=== PATIENT | male | born 1980 | race Hispanic/Latino ===

== ENCOUNTER 2016-08-29 05:24 | Emergency (ER) | payer SELFPAY ==
[2016-08-29] MEDS ORDERED: BENADRYL ONE (05:38)
[2016-08-29] MEDS ORDERED: BENADRYL IV ONE (05:38)
[2016-08-29 05:55] VITALS: BP 133/62
[2016-08-29 06:05] LABS: Basophils % (Auto) 2.1 % (0.0-1.8); Hematocrit 41.4 % (35.5-45.6); Hemoglobin 13.6 gm/dl (11.8-15.2); Mean Corpuscular HGB Conc 33 % (32-34); Mean Corpuscular Hemoglobin 32 pg (28-32); Mean Corpuscular Volume 98 fl (84-94); Platelet Count 277 K/mm3 (140-440); Red Blood Count 4.21 M/mm3 (3.65-5.03); Red Cell Distribution Width 14.3 % (13.2-15.2); White Blood Count 5.5 K/mm3 (4.5-11.0)
[2016-08-29 06:25] LABS: Anion Gap 24 mmol/L; BUN/Creatinine Ratio 8.75; Blood Urea Nitrogen 7 mg/dL (9-20); Calcium 9.2 mg/dL (8.4-10.2); Carbon Dioxide 22 mmol/L (22-30); Chloride 97.9 mmol/L (98-107); Glucose 79 mg/dL (75-100); Sodium 137 mmol/L (137-145)
[2016-08-29 06:26] LABS: Potassium 6.5 mmol/L (3.6-5.0)
--- NOTE | 2016-08-29 07:28 | Emergency Department Report ---
HPI - General Chief Complaint: Skin/Abscess/Foreign Body Time Seen by Provider: 08/29/16 07:11 ED Past Medical Hx - Past Medical History Previous Medical History?: Yes Hx Asthma: Yes - Surgical History Past Surgical History?: Yes Additional Surgical History: Right hand surgery, Left wrist, Right heel surgery - Social History Smoking Status: Never Smoker Substance Use Type: None - Medications Home Medications: Home Medications Medication Instructions Recorded Confirmed Last Taken Type No Known Home Medications [No 06/11/14 06/11/14 Unknown History Reported Home Medications] ED Review of Systems ROS: Stated complaint: ALLERGIC REACTION Other details as noted in HPI Physical Exam - Physical Exam Vital Signs: Vital Signs 08/29/16 05:24 Temperature 98.0 F Pulse Rate 90 Respiratory 20 Rate Blood Pressure 133/62 [Right] O2 Sat by Pulse 100 Oximetry ED Course Vital Signs 08/29/16 05:24 Temperature 98.0 F Pulse Rate 90 Respiratory 20 Rate Blood Pressure 133/62 [Right] O2 Sat by Pulse 100 Oximetry ED Medical Decision Making - Lab Data Result diagrams: 08/29/16 05:40 08/29/16 05:40 Critical care attestation.: If time is entered above; I have spent that time in minutes in the direct care of this critically ill patient, excluding procedure time. ED Disposition Clinical Impression: Foreign body of ear, right Qualifiers: Encounter type: initial encounter Qualified Code(s): T16.1XXA - Foreign body in right ear, initial encounter Disposition: DISCHARGED TO HOME OR SELFCARE Is pt being admited?: No Does the pt Need Aspirin: No Condition: Stable Instructions: Ear Foreign Body (ED) Forms: Work/School Release Form(ED) Time of Disposition: 07:30
== END 2016-08-29 08:09 | disposition left against medical advice (07) ==
LOC: ED 05:24
DX: T78.40XA Allergy, unspecified, initial encounter (principal); L29.9 Pruritus, unspecified; R07.81 Pleurodynia; J45.909 Unspecified asthma, uncomplicated; Z88.5 Allergy status to narcotic agent; Z53.21 Procedure and treatment not carried out due to patient leaving prior to being seen by health care provider
CPT/HCPCS: 36415; 80048; 82962; 85025; G0480; J1200; 80320

== ENCOUNTER 2017-04-21 11:32 | Inpatient (IN) | payer OTHER ==
[2017-04-21] MEDS ORDERED: NACL 0.9% 1000 ML 1,000 ML IV ONE (12:20)
[2017-04-21 12:36] LABS: Hemoglobin 13.1 gm/dl (11.8-15.2); Red Blood Count 4.24 M/mm3 (3.65-5.03)
[2017-04-21 12:37] LABS: Hematocrit 38.1 % (35.5-45.6); Mean Corpuscular HGB Conc 35 % (32-34); Mean Corpuscular Hemoglobin 31 pg (28-32); Mean Corpuscular Volume 90 fl (84-94); Platelet Count 205 K/mm3 (140-440); Red Cell Distribution Width 15.4 % (13.2-15.2)
[2017-04-21 12:44] LABS: Albumin 4.2 g/dL (3.9-5); Albumin/Globulin Ratio 1.2 %; Alkaline Phosphatase 220 units/L (35-129); Anion Gap 18 mmol/L; BUN/Creatinine Ratio 11; Bilirubin,Direct 6.2 mg/dL (0-0.2); Bilirubin,Indirect 2.5 mg/dL; Blood Urea Nitrogen 8 mg/dL (9-20); Calcium 9.2 mg/dL (8.4-10.2); Carbon Dioxide 26 mmol/L (22-30); Chloride 98.4 mmol/L (98-107); Glucose 89 mg/dL (75-100); Lipase 53 units/L (13-60); Potassium 4.3 mmol/L (3.6-5.0); Sodium 138 mmol/L (137-145); Total Protein 7.6 g/dL (6.3-8.2)
[2017-04-21 12:56] LABS: Alanine Aminotransferase 3553 units/L (7-56)
[2017-04-21] MEDS ORDERED: ULTRAM PO ONE (13:01)
--- NOTE | 2017-04-21 13:02 | Emergency Department Report ---
ED General Adult HPI - General Chief complaint: Abdominal Pain Stated complaint: ABD PAIN Time Seen by Provider: 04/21/17 12:17 Source: patient, EMS Mode of arrival: Stretcher Limitations: Other - History of Present Illness Initial comments: This is a patient from the [facility] that arise in the hospital with a request to admit for further evaluation and treatment. Apparently he's been having abdominal pain for at least 3 weeks perhaps now four. He's had an abdominal sonogram on 04/15/2017 which was normal. He also had plain x-rays of his left ribs which were normal. He was sent for outpatient labs on April 19 which demonstrated a bilirubin of 8.1 and AST of nearly 2000 and ALT of 3500. He complains today of persistent mostly right upper quadrant pain. He has not had any problems urinating. He does not complain of nausea now. Review of additional laboratory tests at the [facility] indicate that on the he was negative for centimeters and an positive for hepatitis B core IgM antibody. His labs at that time otherwise did not show anything remarkably out of the normal range. -: Gradual, week(s) Location: abdomen Radiation: non-radiation Quality: aching Consistency: intermittent Improves with: none Worsens with: none Associated Symptoms: denies other symptoms Treatments Prior to Arrival: none - Related Data Home Medications Medication Instructions Recorded Confirmed Last Taken No Known Home Medications [No 06/11/14 06/11/14 Unknown Reported Home Medications] Allergies Allergy/AdvReac Type Severity Reaction Status Date / Time morphine Allergy Hives Verified 06/11/14 12:41 ED Review of Systems ROS: Stated complaint: ABD PAIN Other details as noted in HPI Constitutional: denies: chills, fever Eyes: denies: eye pain, eye discharge, vision change ENT: denies: ear pain, throat pain Respiratory: denies: cough, shortness of breath, wheezing Cardiovascular: denies: chest pain, palpitations Endocrine: no symptoms reported Gastrointestinal: abdominal pain. denies: nausea, vomiting, diarrhea Genitourinary: denies: urgency, dysuria Musculoskeletal: denies: back pain, joint swelling, arthralgia Skin: denies: rash, lesions Neurological: denies: headache, weakness, paresthesias Psychiatric: denies: anxiety, depression Hematological/Lymphatic: denies: easy bleeding, easy bruising ED Past Medical Hx - Past Medical History Previous Medical History?: Yes Hx Liver Disease: Yes Hx Asthma: Yes - Surgical History Past Surgical History?: Yes Additional Surgical History: Right hand surgery, Left wrist, Right heel surgery - Social History Smoking Status: Current Every Day Smoker Substance Use Type: Alcohol, Other (patient denies IVDA) Other Social History: Incarcerated 4 months. - Medications Home Medications: Home Medications Medication Instructions Recorded Confirmed Last Taken Type No Known Home Medications [No 06/11/14 06/11/14 Unknown History Reported Home Medications] ED Physical Exam - General Limitations: No Limitations General appearance: alert, in no apparent distress - Head Head exam: Present: atraumatic, normocephalic - Eye Eye exam: Present: normal appearance, scleral icterus. Absent: PERRL, EOMI - ENT ENT exam: Present: mucous membranes moist - Neck Neck exam: Present: normal inspection - Respiratory Respiratory exam: Present: normal lung sounds bilaterally. Absent: respiratory distress - Cardiovascular Cardiovascular Exam: Present: regular rate, normal rhythm. Absent: systolic murmur, diastolic murmur, rubs, gallop - GI/Abdominal GI/Abdominal exam: Present: soft, tenderness (some right upper quadrant discomfort to palpation), normal bowel sounds, organomegaly ( consider hepatomegaly). Absent: distended, guarding, rebound, rigid - Rectal Rectal exam: Present: deferred - Extremities Exam Extremities exam: Present: normal inspection - Back Exam Back exam: Present: normal inspection - Neurological Exam Neurological exam: Present: alert, oriented X3, CN II-XII intact. Absent: motor sensory deficit - Psychiatric Psychiatric exam: Present: normal affect, normal mood - Skin Skin exam: Present: warm, dry, intact, normal color. Absent: rash ED Course Vital Signs 04/21/17 11:35 Temperature 98 F Pulse Rate 87 Respiratory 17 Rate Blood Pressure 110/82 O2 Sat by Pulse 100 Oximetry - Reevaluation(s) Reevaluation #1: Repeat blood tests are obtained. The patient is admitted by Dr. Saleem to the hospitalist service for further care and evaluation. A CT examination was requested and ordered. 04/21/17 13:06 ED Medical Decision Making - Lab Data Result diagrams: 04/21/17 12:05 04/21/17 12:05 Laboratory Results - last 24 hr 04/21/17 04/21/17 12:05 12:05 WBC 4.0 L RBC 4.24 Hgb 13.1 Hct 38.1 MCV 90 MCH 31 MCHC 35 H RDW 15.4 H Plt Count 205 Sodium 138 Potassium 4.3 Chloride 98.4 Carbon Dioxide 26 Anion Gap 18 BUN 8 L Creatinine 0.7 L Estimated GFR > 60 BUN/Creatinine Ratio 11 Glucose 89 Calcium 9.2 Total Bilirubin 8.70 H Direct Bilirubin 6.2 H Indirect Bilirubin 2.5 AST 2107 H ALT 3553 H Alkaline Phosphatase 220 H Total Protein 7.6 Albumin 4.2 Albumin/Globulin Ratio 1.2 Lipase 53 Critical care attestation.: If time is entered above; I have spent that time in minutes in the direct care of this critically ill patient, excluding procedure time. ED Disposition Clinical Impression: Hepatitis, acute type B, Transaminasemia, Hyperbilirubinemia Abdominal pain Qualifiers: Abdominal location: right upper quadrant Qualified Code(s): R10.11 - Right upper quadrant pain Disposition: DC-09 OP ADMIT IP TO THIS HOSP Is pt being admited?: Yes Does the pt Need Aspirin: No Condition: Stable Referrals: PRIMARY CAREMD [Primary Care Provider] - 3-5 Days Time of Disposition: 13:08
[2017-04-21 13:33] LABS: Basophils % (Manual) 0 % (0.0-1.8); Blastocytes % (Manual) 0 %
[2017-04-21 13:34] LABS: Anisocytosis Few; Diff Status Complete; Target Cells Few
[2017-04-21 13:36] LABS: Urine Drugs of Abuse Note Disclamer
[2017-04-21 13:49] LABS: INR 1.18 (0.87-1.13)
[2017-04-21 13:50] LABS: Bilirubin,Urine MOD (Negative); Blood,Urine NEG (Negative); Ketones,Urine NEG (Negative); Leukocyte Esterase,Urine NEG (Negative); Mucus,Urine FEW /HPF; Nitrite,Urine NEG (Negative); Protein,Urine <15 mg/dL mg/dL (Negative)
[2017-04-21 13:50] LABS: Partial Thromboplastin Time 36.2 Sec. (24.2-36.6)
[2017-04-21 13:54] LABS: Creatine Kinase MB 3.6 ng/mL (0.0-4.0)
[2017-04-21 13:55] LABS: Magnesium 1.9 mg/dL (1.7-2.3)
--- NOTE | 2017-04-21 15:31 | Cat Scan Report ---
CT ABDOMEN AND PELVIS WITH CONTRAST INDICATION: Abdominal pain.. COMPARISON: None similar at this institution. FINDINGS: Abdomen and pelvis CT performed following intravenous administration of 100 cc of Omnipaque 300. LUNG BASES: Slight right middle lobe scarring medially. Nonspecific distal esophageal wall prominence/thickening, not excluded for gastroesophageal reflux and/or hiatal hernia, amongst others. ABDOMEN: Indeterminate 7 mm left hepatic lobe hypodensity anterosuperiorly near the midline, axial series 3, image 13 with questionable small peripheral nodular enhancement, though not included on the delayed phase and may represent a hemangioma. Otherwise unremarkable liver, spleen, gallbladder, pancreas, adrenals, aorta, IVC and kidneys. No ascites or size significant adenopathy. Nonopacified GI tract evaluation limited, though grossly nonobstructive. Cecum slightly low lying in the right hemipelvis anteriorly with a normal appendix. Mild colonic stool. Small fat-containing umbilical hernia. PELVIS: Urinary bladder, seminal vesicles and prostate within normal limits. Rectosigmoid stool. No free fluid or significant adenopathy. Subtle L5 pars defect on the right questioned. No focal aggressive osseous lesions. CONCLUSION: No acute CT abnormality with few incidental findings, as above. Thank you for the opportunity to participate in this patient's care.
--- NOTE | 2017-04-21 16:28 | History and Physical Report ---
History of Present Illness Date of examination: 04/21/17 Date of admission: 04/21/17 13:09 Chief complaint: CC: Acute Abd pain 3 weeks History of present illness: History of Present Illness: This is a patient from the [facility] that arise in the hospital with a request to admit for further evaluation and treatment. Apparently he's been having abdominal pain for at least 3 weeks perhaps now four. He's had an abdominal sonogram on 04/15/2017 which was normal. He also had plain x-rays of his left ribs which were normal. He was sent for outpatient labs on April 19 which demonstrated a bilirubin of 8.1 and AST of nearly 2000 and ALT of 3500. He complains today of persistent mostly right upper quadrant pain. He has not had any problems urinating. He does not complain of nausea now. Review of additional laboratory tests at the [facility] indicate that on the he was positive for hepatitis B core IgM antibody. His labs at that time otherwise did not show anything remarkably out of the normal range. Past Medical History Previous Medical History?: Yes Hx Liver Disease: Yes Hx Asthma: Yes - Surgical History Past Surgical History?: Yes Additional Surgical History: Right hand surgery, Left wrist, Right heel surgery - Social History Smoking Status: Current Every Day Smoker Substance Use Type: Alcohol, Other (patient denies IVDA) Other Social History: Incarcerated 4 months. Fam hx HTN - Related Data Home Medications Medication Instructions Recorded Confirmed Last Taken No Known Home Medications [No 06/11/14 06/11/14 Unknown Reported Home Medications] Allergies Allergy/AdvReac Type Severity Reaction Status Date / Time morphine Allergy Hives Verified 06/11/14 12:41 Past History Past Medical History: No medical history Past Surgical History: No surgical history Social history: no significant social history Family history: hypertension Medications and Allergies Allergies Allergy/AdvReac Type Severity Reaction Status Date / Time morphine Allergy Hives Verified 06/11/14 12:41 Home Medications Medication Instructions Recorded Confirmed Last Taken Type No Known Home Medications [No 06/11/14 04/21/17 Unknown History Reported Home Medications] Active Meds: Active Medications Sodium Chloride (Nacl 0.9% 1000 Ml) 1,000 mls @ 125 mls/hr IV ONCE ONE Stop: 04/21/17 20:19 Last Admin: 04/21/17 12:54 Dose: 125 mls/hr Review of Systems All systems: negative Constitutional: no weight loss, no weight gain, no fever, no chills, no sweats, no night sweats Ears, nose, mouth and throat: no ear pain, no ear discharge, no swelling in mouth, no swelling in throat, no odynophagia Cardiovascular: no chest pain, no orthopnea, no palpitations, no rapid/ irregular heart beat, no edema, no syncope, no lightheadedness, no shortness of breath Respiratory: no cough, no cough with sputum, no excessive sputum, no hemoptysis , no shortness of breath, no dyspnea on exertion Gastrointestinal: abdominal pain, nausea, vomiting, no diarrhea, no constipation , no hematemesis, no coffee ground emesis Genitourinary Male: no dysuria, no flank pain, no discharge, no urinary frequency Rectal: no pain Musculoskeletal: no neck stiffness, no neck pain, no shooting arm pain, no arm numbness/tingling, no low back pain Integumentary: no rash, no pruritis, no redness Neurological: no head injury, no transient paralysis, no paralysis, no seizures , no syncope Psychiatric: no anxiety, no memory loss, no change in sleep habits Endocrine: no cold intolerance, no heat intolerance, no polyphagia, no excessive thirst Hematologic/Lymphatic: no easy bruising, no easy bleeding Allergic/Immunologic: no urticaria, no allergic rhinitis, no wheezing Exam - Constitutional Vitals: Temp Pulse Resp BP Pulse Ox 98.8 F 61 18 111/70 78 L 04/21/17 16:19 04/21/17 16:19 04/21/17 16:19 04/21/17 16:19 04/21/17 16:19 General appearance: Present: mild distress, well-nourished - EENT Eyes: Present: PERRL, scleral icterus ENT: hearing intact, clear oral mucosa - Neck Neck: Present: supple, normal ROM - Respiratory Respiratory effort: normal Respiratory: bilateral: CTA - Cardiovascular Heart rate: 80 Rhythm: regular Heart Sounds: Present: S1 & S2. Absent: rub, click - Extremities Extremities: no ischemia, pulses intact, pulses symmetrical, No edema Peripheral Pulses: within normal limits - Abdominal General gastrointestinal: Present: soft, non-tender, non-distended, normal bowel sounds Male genitourinary: Present: normal - Rectal Rectal Exam: deferred - Integumentary Integumentary: Present: clear, warm, dry - Musculoskeletal Musculoskeletal: gait normal, strength equal bilaterally - Psychiatric Psychiatric: appropriate mood/affect, intact judgment & insight - Neurologic Neurologic: CNII-XII intact, moves all extremities - Allied Health Allied health notes reviewed: nursing, case management Results - Labs CBC & Chem 7: 04/22/17 05:57 04/22/17 05:57 Labs: Laboratory Last Values WBC 4.0 K/mm3 (4.5-11.0) L 04/21/17 12:05 RBC 4.24 M/mm3 (3.65-5.03) 04/21/17 12:05 Hgb 13.1 gm/dl (11.8-15.2) 04/21/17 12:05 Hct 38.1 % (35.5-45.6) 04/21/17 12:05 MCV 90 fl (84-94) 04/21/17 12:05 MCH 31 pg (28-32) 04/21/17 12:05 MCHC 35 % (32-34) H 04/21/17 12:05 RDW 15.4 % (13.2-15.2) H 04/21/17 12:05 Plt Count 205 K/mm3 (140-440) 04/21/17 12:05 Add Manual Diff Complete 04/21/17 12:05 Total Counted 100 04/21/17 12:05 Seg Neuts % (Manual) 39.0 % (40.0-70.0) L 04/21/17 12:05 Band Neutrophils % 1.0 % 04/21/17 12:05 Lymphocytes % (Manual) 37.0 % (13.4-35.0) H 04/21/17 12:05 Reactive Lymphs % (Man) 0 % 04/21/17 12:05 Monocytes % (Manual) 15.0 % (0.0-7.3) H 04/21/17 12:05 Eosinophils % (Manual) 8.0 % (0.0-4.3) H 04/21/17 12:05 Basophils % (Manual) 0 % (0.0-1.8) 04/21/17 12:05 Metamyelocytes % 0 % 04/21/17 12:05 Myelocytes % 0 % 04/21/17 12:05 Promyelocytes % 0 % 04/21/17 12:05 Blast Cells % 0 % 04/21/17 12:05 Nucleated RBC % Not Reportable 04/21/17 12:05 Seg Neutrophils # Man 1.6 K/mm3 (1.8-7.7) L 04/21/17 12:05 Band Neutrophils # 0.0 K/mm3 04/21/17 12:05 Lymphocytes # (Manual) 1.5 K/mm3 (1.2-5.4) 04/21/17 12:05 Abs React Lymphs (Man) 0.0 K/mm3 04/21/17 12:05 Monocytes # (Manual) 0.6 K/mm3 (0.0-0.8) 04/21/17 12:05 Eosinophils # (Manual) 0.3 K/mm3 (0.0-0.4) 04/21/17 12:05 Basophils # (Manual) 0.0 K/mm3 (0.0-0.1) 04/21/17 12:05 Metamyelocytes # 0.0 K/mm3 04/21/17 12:05 Myelocytes # 0.0 K/mm3 04/21/17 12:05 Promyelocytes # 0.0 K/mm3 04/21/17 12:05 Blast Cells # 0.0 K/mm3 04/21/17 12:05 WBC Morphology Not Reportable 04/21/17 12:05 Hypersegmented Neuts Not Reportable 04/21/17 12:05 Hyposegmented Neuts Not Reportable 04/21/17 12:05 Hypogranular Neuts Not Reportable 04/21/17 12:05 Smudge Cells Not Reportable 04/21/17 12:05 Toxic Granulation Not Reportable 04/21/17 12:05 Toxic Vacuolation Not Reportable 04/21/17 12:05 Dohle Bodies Not Reportable 04/21/17 12:05 Pelger-Huet Anomaly Not Reportable 04/21/17 12:05 Satya Rods Not Reportable 04/21/17 12:05 Platelet Estimate Not Reportable 04/21/17 12:05 Clumped Platelets Not Reportable 04/21/17 12:05 Plt Clumps, EDTA Not Reportable 04/21/17 12:05 Large Platelets Not Reportable 04/21/17 12:05 Giant Platelets Not Reportable 04/21/17 12:05 Platelet Satelliting Not Reportable 04/21/17 12:05 Plt Morphology Comment Not Reportable 04/21/17 12:05 RBC Morphology Not Reportable 04/21/17 12:05 Dimorphic RBCs Not Reportable 04/21/17 12:05 Polychromasia Not Reportable 04/21/17 12:05 Hypochromasia Not Reportable 04/21/17 12:05 Poikilocytosis Not Reportable 04/21/17 12:05 Anisocytosis Few 04/21/17 12:05 Microcytosis Not Reportable 04/21/17 12:05 Macrocytosis Not Reportable 04/21/17 12:05 Spherocytes Not Reportable 04/21/17 12:05 Pappenheimer Bodies Not Reportable 04/21/17 12:05 Sickle Cells Not Reportable 04/21/17 12:05 Target Cells Few 04/21/17 12:05 Tear Drop Cells Not Reportable 04/21/17 12:05 Ovalocytes Not Reportable 04/21/17 12:05 Helmet Cells Not Reportable 04/21/17 12:05 Mcnally-Penbrook Bodies Not Reportable 04/21/17 12:05 [place] Rings Not Reportable 04/21/17 12:05 Marguerite Cells Not Reportable 04/21/17 12:05 Bite Cells Not Reportable 04/21/17 12:05 Crenated Cell Not Reportable 04/21/17 12:05 Elliptocytes Not Reportable 04/21/17 12:05 Acanthocytes (Spur) Not Reportable 04/21/17 12:05 Rouleaux Not Reportable 04/21/17 12:05 Hemoglobin C Crystals Not Reportable 04/21/17 12:05 Schistocytes Not Reportable 04/21/17 12:05 Malaria parasites Not Reportable 04/21/17 12:05 Adebayo Bodies Not Reportable 04/21/17 12:05 Hem Pathologist Commnt No 04/21/17 12:05 PT 15.6 Sec. (12.2-14.9) H 04/21/17 12:58 INR 1.18 (0.87-1.13) H 04/21/17 12:58 APTT 36.2 Sec. (24.2-36.6) 04/21/17 12:58 Sodium 138 mmol/L (137-145) 04/21/17 12:05 Potassium 4.3 mmol/L (3.6-5.0) 04/21/17 12:05 Chloride 98.4 mmol/L (98-107) 04/21/17 12:05 Carbon Dioxide 26 mmol/L (22-30) 04/21/17 12:05 Anion Gap 18 mmol/L 04/21/17 12:05 BUN 8 mg/dL (9-20) L 04/21/17 12:05 Creatinine 0.7 mg/dL (0.8-1.5) L 04/21/17 12:05 Estimated GFR > 60 ml/min 04/21/17 12:05 BUN/Creatinine Ratio 11 % 04/21/17 12:05 Glucose 89 mg/dL (75-100) 04/21/17 12:05 Calcium 9.2 mg/dL (8.4-10.2) 04/21/17 12:05 Magnesium 1.90 mg/dL (1.7-2.3) 04/21/17 12:58 Total Bilirubin 8.70 mg/dL (0.1-1.2) H 04/21/17 12:05 Direct Bilirubin 6.2 mg/dL (0-0.2) H 04/21/17 12:05 Indirect Bilirubin 2.5 mg/dL 04/21/17 12:05 AST 2107 units/L (5-40) H 04/21/17 12:05 ALT 3553 units/L (7-56) H 04/21/17 12:05 Alkaline Phosphatase 220 units/L (35-129) H 04/21/17 12:05 Ammonia 76.0 umol/L (25-60) H 04/21/17 12:58 Total Creatine Kinase 342 units/L (55-170) H 04/21/17 12:58 CK-MB (CK-2) 3.6 ng/mL (0.0-4.0) 04/21/17 12:58 CK-MB (CK-2) Rel Index 1.0 (0-4) 04/21/17 12:58 Total Protein 7.6 g/dL (6.3-8.2) 04/21/17 12:05 Albumin 4.2 g/dL (3.9-5) 04/21/17 12:05 Albumin/Globulin Ratio 1.2 % 04/21/17 12:05 Lipase 53 units/L (13-60) 04/21/17 12:05 Urine Color Li (Yellow) 04/21/17 13:19 Urine Turbidity Clear (Clear) 04/21/17 13:19 Urine pH 6.0 (5.0-7.0) 04/21/17 13:19 Ur Specific [place] 1.016 (1.003-1.030) 04/21/17 13:19 Urine Protein <15 mg/dl mg/dL (Negative) 04/21/17 13:19 Urine Glucose (UA) Neg mg/dL (Negative) 04/21/17 13:19 Urine Ketones Neg mg/dL (Negative) 04/21/17 13:19 Urine Blood Neg (Negative) 04/21/17 13:19 Urine Nitrite Neg (Negative) 04/21/17 13:19 Urine Bilirubin Mod (Negative) 04/21/17 13:19 Urine Ictotest Positive (Negative) 04/21/17 13:19 Urine Urobilinogen 4.0 mg/dL (<2.0) 04/21/17 13:19 Ur Leukocyte Esterase Neg (Negative) 04/21/17 13:19 Urine WBC (Auto) 2.0 /HPF (0.0-6.0) 04/21/17 13:19 Urine RBC (Auto) 2.0 /HPF (0.0-6.0) 04/21/17 13:19 U Epithel Cells (Auto) < 1.0 /HPF (0-13.0) 04/21/17 13:19 Urine Mucus Few /HPF 04/21/17 13:19 Urine Opiates Screen Presumptive negative 04/21/17 13:19 Urine Methadone Screen Presumptive negative 04/21/17 13:19 Ur Barbiturates Screen Presumptive negative 04/21/17 13:19 Ur Phencyclidine Scrn Presumptive negative 04/21/17 13:19 Ur Amphetamines Screen Presumptive negative 04/21/17 13:19 U Benzodiazepines Scrn Presumptive negative 04/21/17 13:19 Urine Cocaine Screen Presumptive negative 04/21/17 13:19 U Marijuana (THC) Screen Presumptive negative 04/21/17 13:19 Drugs of Abuse Note Disclamer 04/21/17 13:19 Short CBC 04/21/17 04/22/17 Range/Units 12:05 05:57 WBC 4.0 L 3.8 L (4.5-11.0) K/mm3 Hgb 13.1 11.8 (11.8-15.2) gm/dl Hct 38.1 35.7 (35.5-45.6) % Plt Count 205 201 (140-440) K/mm3 BMP 04/21/17 04/22/17 12:05 05:57 Sodium 138 136 L Potassium 4.3 4.1 Chloride 98.4 98.1 Carbon Dioxide 26 25 BUN 8 L 7 L Creatinine 0.7 L 0.5 L Glucose 89 98 Calcium 9.2 8.4 Cardiac Enzymes 04/21/17 Range/Units 12:58 Total Creatine Kinase 342 H (55-170) units/L CK-MB (CK-2) 3.6 (0.0-4.0) ng/mL Liver Function 04/21/17 04/22/17 Range/Units 12:05 05:57 Total Bilirubin 8.70 H 9.00 H (0.1-1.2) mg/dL Direct Bilirubin 6.2 H (0-0.2) mg/dL AST 2107 H 1798 H (5-40) units/L ALT 3553 H 3187 H (7-56) units/L Alkaline Phosphatase 220 H 202 H (35-129) units/L Albumin 4.2 4.0 (3.9-5) g/dL Urine 04/21/17 Range/Units 13:19 Urine Color Li (Yellow) Urine pH 6.0 (5.0-7.0) Ur Specific [place] 1.016 (1.003-1.030) Urine Protein <15 mg/dl (Negative) mg/dL Urine Glucose (UA) Neg (Negative) mg/dL - Imaging and Cardiology CT scan - abdomen: report reviewed (NAF) Assessment and Plan Advance Directives: Yes (Full code) VTE prophylaxis?: Chemical Plan of care discussed with patient/family: Yes - Patient Problems (1) Hepatitis, acute type B Current Visit: Yes Status: Acute Plan to address problem: AST/ALT 2107/3553 TB 8.7 Hep B Ig M positive Picture in favor of Acute Hepatitis B ID consulted (2) Abdominal pain Current Visit: Yes Status: Acute Qualifiers: Abdominal location: right upper quadrant Qualified Code(s): R10.11 - Right upper quadrant pain (3) Transaminasemia Current Visit: Yes Status: Acute Plan to address problem: Sec to Hep B (4) DVT prophylaxis Current Visit: Yes Status: Acute Plan to address problem: on lovenox
[2017-04-21] MEDS ORDERED: TYLENOL PO PRN (16:32)
[2017-04-21] MEDS ORDERED: ZOFRAN IV PRN (16:32)
[2017-04-21] MEDS ORDERED: DULCOLAX PR PRN (16:32)
[2017-04-21] MEDS ORDERED: MILK OF MAGNESIA PO PRN (16:32)
[2017-04-21] MEDS ORDERED: PERCOCET 5/325 PO PRN (16:32)
[2017-04-21] MEDS: DILAUDID IV PRN ×2 (17:46→21:38)
[2017-04-21] MEDS: NACL 0.9% 1000 ML 1,000 ML IV SCH (17:46)
[2017-04-22] MEDS: DILAUDID IV PRN ×3 (00:47→08:37)
[2017-04-22] MEDS: NACL 0.9% 1000 ML 1,000 ML IV SCH (01:50)
[2017-04-22 06:53] LABS: Hematocrit 35.7 % (35.5-45.6); Hemoglobin 11.8 gm/dl (11.8-15.2); Mean Corpuscular HGB Conc 33 % (32-34); Mean Corpuscular Hemoglobin 30 pg (28-32); Mean Corpuscular Volume 90 fl (84-94); Platelet Count 201 K/mm3 (140-440); Red Blood Count 3.96 M/mm3 (3.65-5.03); Red Cell Distribution Width 15.5 % (13.2-15.2); White Blood Count 3.8 K/mm3 (4.5-11.0)
[2017-04-22 07:19] LABS: Albumin/Globulin Ratio 1.3 %; Alkaline Phosphatase 202 units/L (35-129); Anion Gap 17 mmol/L; BUN/Creatinine Ratio 14; Blood Urea Nitrogen 7 mg/dL (9-20); Calcium 8.4 mg/dL (8.4-10.2); Carbon Dioxide 25 mmol/L (22-30); Chloride 98.1 mmol/L (98-107); Glucose 98 mg/dL (75-100); Potassium 4.1 mmol/L (3.6-5.0); Sodium 136 mmol/L (137-145)
[2017-04-22 07:32] LABS: Alanine Aminotransferase 3187 units/L (7-56)
[2017-04-22 08:00] LABS: Basophils % (Manual) 0 % (0.0-1.8); Blastocytes % (Manual) 0 %; Hypochromasia Few
[2017-04-22 08:01] LABS: Diff Status Complete; Ovalocytes Few; Target Cells Rare
--- NOTE | 2017-04-22 10:18 | Progress Note ---
Assessment and Plan Assessment and plan: This is a patient from the [facility] sent to hospital for abdominal pain and jaundice (1) Hepatitis, acute type B ID input appreciated "-no indication for antiretroviral treatment for acute infection in view of bili <10 and INR <1.5 -check HBV DNA and HBV e Ag -monitor HBV e Ag conversion to negative in 6 months -check HIV, RPR" -continue IVF and pain meds (2) Abdominal pain Current Visit: Yes Status: Acute Qualifiers: Abdominal location: right upper quadrant Qualified Code(s): R10.11 - Right upper quadrant pain 3. constipation add stool softeners (4) DVT prophylaxis Current Visit: Yes Status: Acute Plan to address problem: on lovenox History Interval history: He is complaining of right upper quadrant pain. It is 8 out of 10. Denies nausea denies vomiting. He has no exacerbating or relieving factors. Hospitalist Physical - Constitutional Vitals: Temp Pulse Resp BP Pulse Ox 98.0 F 57 L 20 95/70 94 04/22/17 07:26 04/22/17 07:26 04/22/17 07:26 04/22/17 07:26 04/22/17 07:26 General appearance: Present: mild distress, well-nourished - EENT Eyes: Present: PERRL, scleral icterus ENT: hearing intact - Neck Neck: Present: supple, normal ROM - Respiratory Respiratory effort: normal Respiratory: bilateral: CTA - Cardiovascular Rhythm: regular Heart Sounds: Present: S1 & S2 - Extremities Extremities: no ischemia Peripheral Pulses: within normal limits - Abdominal General gastrointestinal: soft, tender Localized gastrointestinal: tender: RUQ - Integumentary Integumentary: Present: clear, warm - Psychiatric Psychiatric: appropriate mood/affect - Neurologic Neurologic: CNII-XII intact, moves all extremities Results - Labs CBC & Chem 7: 04/22/17 05:57 04/22/17 05:57 Labs: Laboratory Last Values WBC 3.8 K/mm3 (4.5-11.0) L 04/22/17 05:57 RBC 3.96 M/mm3 (3.65-5.03) 04/22/17 05:57 Hgb 11.8 gm/dl (11.8-15.2) 04/22/17 05:57 Hct 35.7 % (35.5-45.6) 04/22/17 05:57 MCV 90 fl (84-94) 04/22/17 05:57 MCH 30 pg (28-32) 04/22/17 05:57 MCHC 33 % (32-34) 04/22/17 05:57 RDW 15.5 % (13.2-15.2) H 04/22/17 05:57 Plt Count 201 K/mm3 (140-440) 04/22/17 05:57 [place] % (Auto) Preservative Filler Machine Operator 04/22/17 05:57 Add Manual Diff Complete 04/22/17 05:57 Total Counted 100 04/22/17 05:57 Seg Neutrophils % Preservative Filler Machine Operator 04/22/17 05:57 Seg Neuts % (Manual) 43.0 % (40.0-70.0) 04/22/17 05:57 Band Neutrophils % 0 % 04/22/17 05:57 Lymphocytes % (Manual) 37.0 % (13.4-35.0) H 04/22/17 05:57 Reactive Lymphs % (Man) 0 % 04/22/17 05:57 Monocytes % (Manual) 8.0 % (0.0-7.3) H 04/22/17 05:57 Eosinophils % (Manual) 12.0 % (0.0-4.3) H 04/22/17 05:57 Basophils % (Manual) 0 % (0.0-1.8) 04/22/17 05:57 Metamyelocytes % 0 % 04/22/17 05:57 Myelocytes % 0 % 04/22/17 05:57 Promyelocytes % 0 % 04/22/17 05:57 Blast Cells % 0 % 04/22/17 05:57 Nucleated RBC % Not Reportable 04/22/17 05:57 Seg Neutrophils # Man 1.6 K/mm3 (1.8-7.7) L 04/22/17 05:57 Band Neutrophils # 0.0 K/mm3 04/22/17 05:57 Lymphocytes # (Manual) 1.4 K/mm3 (1.2-5.4) 04/22/17 05:57 Abs React Lymphs (Man) 0.0 K/mm3 04/22/17 05:57 Monocytes # (Manual) 0.3 K/mm3 (0.0-0.8) 04/22/17 05:57 Eosinophils # (Manual) 0.5 K/mm3 (0.0-0.4) H 04/22/17 05:57 Basophils # (Manual) 0.0 K/mm3 (0.0-0.1) 04/22/17 05:57 Metamyelocytes # 0.0 K/mm3 04/22/17 05:57 Myelocytes # 0.0 K/mm3 04/22/17 05:57 Promyelocytes # 0.0 K/mm3 04/22/17 05:57 Blast Cells # 0.0 K/mm3 04/22/17 05:57 WBC Morphology Not Reportable 04/22/17 05:57 Hypersegmented Neuts Not Reportable 04/22/17 05:57 Hyposegmented Neuts Not Reportable 04/22/17 05:57 Hypogranular Neuts Not Reportable 04/22/17 05:57 Smudge Cells Not Reportable 04/22/17 05:57 Toxic Granulation Not Reportable 04/22/17 05:57 Toxic Vacuolation Not Reportable 04/22/17 05:57 Dohle Bodies Not Reportable 04/22/17 05:57 Pelger-Huet Anomaly Not Reportable 04/22/17 05:57 Satya Rods Not Reportable 04/22/17 05:57 Platelet Estimate Appears normal 04/22/17 05:57 Clumped Platelets Not Reportable 04/22/17 05:57 Plt Clumps, EDTA Not Reportable 04/22/17 05:57 Large Platelets Not Reportable 04/22/17 05:57 Giant Platelets Not Reportable 04/22/17 05:57 Platelet Satelliting Not Reportable 04/22/17 05:57 Plt Morphology Comment Not Reportable 04/22/17 05:57 RBC Morphology Not Reportable 04/22/17 05:57 Dimorphic RBCs Not Reportable 04/22/17 05:57 Polychromasia Not Reportable 04/22/17 05:57 Hypochromasia Few 04/22/17 05:57 Poikilocytosis Not Reportable 04/22/17 05:57 Anisocytosis Not Reportable 04/22/17 05:57 Microcytosis Not Reportable 04/22/17 05:57 Macrocytosis Not Reportable 04/22/17 05:57 Spherocytes Not Reportable 04/22/17 05:57 Pappenheimer Bodies Not Reportable 04/22/17 05:57 Sickle Cells Not Reportable 04/22/17 05:57 Target Cells Rare 04/22/17 05:57 Tear Drop Cells Not Reportable 04/22/17 05:57 Ovalocytes Few 04/22/17 05:57 Helmet Cells Not Reportable 04/22/17 05:57 [place] Bodies Not Reportable 04/22/17 05:57 [place] Rings Not Reportable 04/22/17 05:57 Marguerite Cells Not Reportable 04/22/17 05:57 Bite Cells Not Reportable 04/22/17 05:57 Crenated Cell Not Reportable 04/22/17 05:57 Elliptocytes Not Reportable 04/22/17 05:57 Acanthocytes (Spur) Not Reportable 04/22/17 05:57 Rouleaux Not Reportable 04/22/17 05:57 Hemoglobin C Crystals Not Reportable 04/22/17 05:57 Schistocytes Not Reportable 04/22/17 05:57 Malaria parasites Not Reportable 04/22/17 05:57 Adebayo Bodies Not Reportable 04/22/17 05:57 Hem Pathologist Commnt No 04/22/17 05:57 PT 15.6 Sec. (12.2-14.9) H 04/21/17 12:58 INR 1.18 (0.87-1.13) H 04/21/17 12:58 APTT 36.2 Sec. (24.2-36.6) 04/21/17 12:58 Sodium 136 mmol/L (137-145) L 04/22/17 05:57 Potassium 4.1 mmol/L (3.6-5.0) 04/22/17 05:57 Chloride 98.1 mmol/L (98-107) 04/22/17 05:57 Carbon Dioxide 25 mmol/L (22-30) 04/22/17 05:57 Anion Gap 17 mmol/L 04/22/17 05:57 BUN 7 mg/dL (9-20) L 04/22/17 05:57 Creatinine 0.5 mg/dL (0.8-1.5) L 04/22/17 05:57 Estimated GFR > 60 ml/min 04/22/17 05:57 BUN/Creatinine Ratio 14 % 04/22/17 05:57 Glucose 98 mg/dL (75-100) 04/22/17 05:57 Calcium 8.4 mg/dL (8.4-10.2) 04/22/17 05:57 Magnesium 1.90 mg/dL (1.7-2.3) 04/21/17 12:58 Total Bilirubin 9.00 mg/dL (0.1-1.2) H 04/22/17 05:57 Direct Bilirubin 6.2 mg/dL (0-0.2) H 04/21/17 12:05 Indirect Bilirubin 2.5 mg/dL 04/21/17 12:05 AST 1798 units/L (5-40) H 04/22/17 05:57 ALT 3187 units/L (7-56) H 04/22/17 05:57 Alkaline Phosphatase 202 units/L (35-129) H 04/22/17 05:57 Ammonia 76.0 umol/L (25-60) H 04/21/17 12:58 Total Creatine Kinase 342 units/L (55-170) H 04/21/17 12:58 CK-MB (CK-2) 3.6 ng/mL (0.0-4.0) 04/21/17 12:58 CK-MB (CK-2) Rel Index 1.0 (0-4) 04/21/17 12:58 Total Protein 7.0 g/dL (6.3-8.2) 04/22/17 05:57 Albumin 4.0 g/dL (3.9-5) 04/22/17 05:57 Albumin/Globulin Ratio 1.3 % 04/22/17 05:57 Lipase 53 units/L (13-60) 04/21/17 12:05 Urine Color Li (Yellow) 04/21/17 13:19 Urine Turbidity Clear (Clear) 04/21/17 13:19 Urine pH 6.0 (5.0-7.0) 04/21/17 13:19 Ur Specific [place] 1.016 (1.003-1.030) 04/21/17 13:19 Urine Protein <15 mg/dl mg/dL (Negative) 04/21/17 13:19 Urine Glucose (UA) Neg mg/dL (Negative) 04/21/17 13:19 Urine Ketones Neg mg/dL (Negative) 04/21/17 13:19 Urine Blood Neg (Negative) 04/21/17 13:19 Urine Nitrite Neg (Negative) 04/21/17 13:19 Urine Bilirubin Mod (Negative) 04/21/17 13:19 Urine Ictotest Positive (Negative) 04/21/17 13:19 Urine Urobilinogen 4.0 mg/dL (<2.0) 04/21/17 13:19 Ur Leukocyte Esterase Neg (Negative) 04/21/17 13:19 Urine WBC (Auto) 2.0 /HPF (0.0-6.0) 04/21/17 13:19 Urine RBC (Auto) 2.0 /HPF (0.0-6.0) 04/21/17 13:19 U Epithel Cells (Auto) < 1.0 /HPF (0-13.0) 04/21/17 13:19 Urine Mucus Few /HPF 04/21/17 13:19 Urine Opiates Screen Presumptive negative 04/21/17 13:19 Urine Methadone Screen Presumptive negative 04/21/17 13:19 Ur Barbiturates Screen Presumptive negative 04/21/17 13:19 Ur Phencyclidine Scrn Presumptive negative 04/21/17 13:19 Ur Amphetamines Screen Presumptive negative 04/21/17 13:19 U Benzodiazepines Scrn Presumptive negative 04/21/17 13:19 Urine Cocaine Screen Presumptive negative 04/21/17 13:19 U Marijuana (THC) Screen Presumptive negative 04/21/17 13:19 Drugs of Abuse Note Disclamer 04/21/17 13:19 Hepatitis A IgM Ab Non-reactive (NonReactive) 04/21/17 23:23 Hep Bs Antigen Reactive (Negative) 04/21/17 23:23 Hep B Core IgM Ab Reactive (NonReactive) A 04/21/17 23:23 Hepatitis C Antibody Non-reactive (NonReactive) 04/21/17 23:23
[2017-04-22 11:23] LABS: HIV-1 Antigen p24 Non React (Non React); HIVR-1/2 Ab Non React (Non React)
[2017-04-22] MEDS ORDERED: Fluarix Quad 2017-2018(36 MOS+ IM ONE (12:00)
[2017-04-22] MEDS ORDERED: PNEUMOVAX 23 IM ONE (12:00)
--- NOTE | 2017-04-22 13:06 | Consultation ---
History of Present Illness - Reason for Consult Consult date: 04/22/17 HBV Requesting physician: DANIA WINTERS - History of Present Illness 36 year old male, prisoner at [facility], admitted on 04/19/2017 due to 3-week history of progressive abdominal pain at the RUQ, at times 10/10, associated with nausea and poor appetite. Denies any vomiting or diarrhea. Patient denies any fever. Denies any respiratory symptoms or urinary symptoms. [facility] and had an Abd US on 04/15/2017 which was normal , x-rays of his left ribs normal and outpatient labs on April 19 which demonstrated a bilirubin of 8.1 and AST of nearly 2000 and ALT of 3500. Patient has been sexually active with the same partner for 2 years. Denies any IV drug use. He uses marijuana occasionally. Denies any blood transfusion. In the emergency room initial temperature was 98, heart rate 87, blood pressure 110/82. WBC 4. Hg 13.1. Plat 205. AST 2107. ALT 3553. Alk phos 220. Total bili 8.7. HBV core IgM positive, HBV s Ag positive. HCV ab neg. Microbiology: none Current Antimicrobials: none Previous Antimicrobials: Past History Past Medical History: No medical history Past Surgical History: No surgical history Social history: no significant social history Family history: hypertension Medications and Allergies Allergies Allergy/AdvReac Type Severity Reaction Status Date / Time morphine Allergy Hives Verified 06/11/14 12:41 Home Medications Medication Instructions Recorded Confirmed Last Taken Type No Known Home Medications [No 06/11/14 04/21/17 Unknown History Reported Home Medications] Active Meds: Active Medications Bisacodyl (Dulcolax) 10 mg DE QDAY PRN PRN Reason: Constipation unrelieved by MOM Enoxaparin Sodium (Lovenox) 40 mg SUB-Q QDAY@2200 LYNDSEY Hydromorphone HCl (Dilaudid) 1 mg IV Q3H PRN PRN Reason: Pain , Severe (7-10) Last Admin: 04/22/17 08:37 Dose: 1 mg Sodium Chloride (Nacl 0.9% 1000 Ml) 1,000 mls @ 125 mls/hr IV DIRECT LYNDSEY Last Admin: 04/22/17 01:50 Dose: 125 mls/hr Magnesium Hydroxide (Milk Of Magnesia) 30 ml PO Q4H PRN PRN Reason: Constipation Last Admin: 04/22/17 08:44 Dose: 30 ml Ondansetron HCl (Zofran) 4 mg IV Q8H PRN PRN Reason: N/V unrelieved by Reglan Oxycodone HCl (Roxicodone) 10 mg PO Q4H PRN PRN Reason: Pain, Moderate (4-6) Review of Systems All systems: negative (as per HPI rest neg) Physical Examination - Physical Exam Narrative exam: General appearance: Alert in NAD, conversant Eyes: anicteric sclerae, moist conjunctivae; no lid-lag; PERRLA HENT: Atraumatic; oropharynx clear Neck: Trachea midline; supple, no thyromegaly or lymphadenopathy Lungs: CTA CV: RRR,murmurs Abdomen: Soft, +RUQ tenderness Extremities: No peripheral edema or extremity lymphadenopathy Skin: Normal temperature, turgor and texture; no rash, ulcers or subcutaneous nodules Psych: Appropriate affect, alert and oriented to person, place and time. Neuro: alert and oriented x 3. Moving all extermities Lines: No CVL / PICC - Constitutional Vitals: Vital Signs Temp Pulse Resp BP Pulse Ox 98.0 F 57 L 20 95/70 94 04/22/17 07:26 04/22/17 07:26 04/22/17 07:26 04/22/17 07:26 04/22/17 07:26 Temperature -Last 24 Hours Temperature 98.0 F Temperature 98.3 F Temperature 98.8 F Temperature 98.4 F Results - Labs CBC & Chem 7: 04/22/17 05:57 04/22/17 05:57 Labs: Abnormal lab results 04/21/17 04/21/17 04/21/17 Range/Units 12:05 12:58 12:58 WBC (4.5-11.0) K/mm3 RDW (13.2-15.2) % Seg Neuts % (Manual) 39.0 L (40.0-70.0) % Lymphocytes % (Manual) 37.0 H (13.4-35.0) % Monocytes % (Manual) 15.0 H (0.0-7.3) % Eosinophils % (Manual) 8.0 H (0.0-4.3) % Seg Neutrophils # Man 1.6 L (1.8-7.7) K/mm3 Eosinophils # (Manual) (0.0-0.4) K/mm3 PT 15.6 H (12.2-14.9) Sec. INR 1.18 H (0.87-1.13) Sodium (137-145) mmol/L BUN (9-20) mg/dL Creatinine (0.8-1.5) mg/dL Total Bilirubin (0.1-1.2) mg/dL AST (5-40) units/L ALT (7-56) units/L Alkaline Phosphatase (35-129) units/L Ammonia (25-60) umol/L Total Creatine Kinase 342 H (55-170) units/L Hep B Core IgM Ab (NonReactive) 04/21/17 04/21/17 04/22/17 Range/Units 12:58 23:23 05:57 WBC 3.8 L (4.5-11.0) K/mm3 RDW 15.5 H (13.2-15.2) % Seg Neuts % (Manual) (40.0-70.0) % Lymphocytes % (Manual) 37.0 H (13.4-35.0) % Monocytes % (Manual) 8.0 H (0.0-7.3) % Eosinophils % (Manual) 12.0 H (0.0-4.3) % Seg Neutrophils # Man 1.6 L (1.8-7.7) K/mm3 Eosinophils # (Manual) 0.5 H (0.0-0.4) K/mm3 PT (12.2-14.9) Sec. INR (0.87-1.13) Sodium (137-145) mmol/L BUN (9-20) mg/dL Creatinine (0.8-1.5) mg/dL Total Bilirubin (0.1-1.2) mg/dL AST (5-40) units/L ALT (7-56) units/L Alkaline Phosphatase (35-129) units/L Ammonia 76.0 H (25-60) umol/L Total Creatine Kinase (55-170) units/L Hep B Core IgM Ab Reactive A (NonReactive) 04/22/17 Range/Units 05:57 WBC (4.5-11.0) K/mm3 RDW (13.2-15.2) % Seg Neuts % (Manual) (40.0-70.0) % Lymphocytes % (Manual) (13.4-35.0) % Monocytes % (Manual) (0.0-7.3) % Eosinophils % (Manual) (0.0-4.3) % Seg Neutrophils # Man (1.8-7.7) K/mm3 Eosinophils # (Manual) (0.0-0.4) K/mm3 PT (12.2-14.9) Sec. INR (0.87-1.13) Sodium 136 L (137-145) mmol/L BUN 7 L (9-20) mg/dL Creatinine 0.5 L (0.8-1.5) mg/dL Total Bilirubin 9.00 H (0.1-1.2) mg/dL AST 1798 H (5-40) units/L ALT 3187 H (7-56) units/L Alkaline Phosphatase 202 H (35-129) units/L Ammonia (25-60) umol/L Total Creatine Kinase (55-170) units/L Hep B Core IgM Ab (NonReactive) Assessment and Plan Assessment: 1) Acute Hepatitis B virus -Plat 205. -AST 2107. ALT 3553. Alk phos 220. Total bili 8.7. -HBV core IgM positive, HBV s Ag positive. -HCV ab neg. -No coagulopathy Plan: -treat symptomatically -monitor LFTs and INR -no indication for antiretroviral treatment for acute infection in view of bili <10 and INR <1.5 -check HBV DNA and HBV e Ag -monitor HBV e Ag conversion to negative in 6 months -check HIV, RPR Thank you Dr Winters for your consultation, will follow up with you. Jessica Nix MD Infectious Diseases Specialist [facility] ([facility]) M [phone] O [phone]
[2017-04-22] MEDS: MIRALAX 3350 PO SCH (13:54)
[2017-04-22] MEDS: ROXICODONE PO PRN ×3 (13:55→22:07)
[2017-04-22] MEDS ORDERED: BANOPHEN ANTI-ITCH TP PRN (21:42)
[2017-04-22] MEDS: BENADRYL IV PRN (22:07)
[2017-04-22] MEDS: LOVENOX SUB-Q SCH (22:08)
[2017-04-22] MEDS: SENOKOT S PO SCH (22:08)
[2017-04-23] MEDS: ROXICODONE PO PRN ×5 (01:52→20:39)
[2017-04-23] MEDS: NACL 0.9% 1000 ML 1,000 ML IV SCH (01:53)
[2017-04-23] MEDS: BENADRYL IV PRN ×3 (06:43→20:40)
[2017-04-23] MEDS: DILAUDID IV PRN ×2 (08:09→11:11)
--- NOTE | 2017-04-23 09:16 | Discharge Summary ---
Providers - Providers Date of Admission: 04/21/17 13:09 Attending physician: ROJELIO MCARTHUR MD 04/22/17 07:49 Consult to Physician [CONS] Routine Consulting Provider: VAZQUEZ MARTIN Reason For Exam: Hep B Place consult to:: DR. ESPINOZA Notified:: DR. ESPINOZA Phone number called:: IN HOUSE Was contact made?: Yes If yes, spoke with:: DR. ESPINOZA Time called:: 09:28 Comment:: ROMELIA NOTIFIED Primary care physician: [employer] RECORD SUPERVISOR Hospitalization Condition: Stable Hospital course: This is a patient from the [facility] sent to hospital for abdominal pain and jaundice. He was found to have acute hepatitis due to Hepatitis B. He received IV fluids and pain medications. His liver function test improved as he was in the hospital. He was seen by infectious disease and it was deemed that He did not require antiretroviral meds for the acute infection given no signs of liver failure. Patient is to follow up with his PCP as an outpatient for the next 6 months to ensure clearance of the virus. he clinically improved on with discharge and was subsequently discharged discharge diagnosis acute hepatitis due to Hepatitis B virus constipation Disposition: DC-01 TO HOME OR SELFCARE Time spent for discharge: 33 minutes Core Measure Documentation - Palliative Care Palliative Care/ Comfort Measures: Not Applicable - Core Measures Any of the following diagnoses?: none Exam - Constitutional Vitals: Temp Pulse Resp BP Pulse Ox 97.8 F 74 20 112/65 96 04/23/17 08:01 04/23/17 08:01 04/23/17 08:01 04/23/17 08:01 04/23/17 08:01 General appearance: Present: no acute distress, well-nourished - EENT Eyes: Present: PERRL, scleral icterus ENT: hearing intact, clear oral mucosa - Neck Neck: Present: supple, normal ROM - Respiratory Respiratory effort: normal Respiratory: bilateral: CTA - Cardiovascular Heart Sounds: Present: S1 & S2. Absent: rub, click - Extremities Extremities: pulses symmetrical, No edema Peripheral Pulses: within normal limits - Abdominal General gastrointestinal: Present: soft, non-distended, normal bowel sounds Localized gastrointestinal: tender: RUQ Male genitourinary: Present: normal - Integumentary Integumentary: Present: clear, warm, dry - Musculoskeletal Musculoskeletal: gait normal, strength equal bilaterally - Psychiatric Psychiatric: appropriate mood/affect, intact judgment & insight - Neurologic Neurologic: CNII-XII intact, moves all extremities Plan Follow up with: PRIMARY CARE,MD [Primary Care Provider] - 3-5 Days Prescriptions: Sennosides/Docusate [Senokot S] 2 tab PO QHS #60 tablet oxyCODONE [Roxicodone TAB] 10 mg PO Q4H PRN #30 tablet PRN Reason: Pain, Moderate (4-6)
[2017-04-23 10:19] LABS: Albumin/Globulin Ratio 1.5 %; Bilirubin,Direct 7.6 mg/dL (0-0.2); Bilirubin,Indirect 2.9 mg/dL; Bilirubin,Total 10.5 mg/dL (0.1-1.2); Total Protein 6.6 g/dL (6.3-8.2)
[2017-04-23] MEDS: MIRALAX 3350 PO SCH (10:33)
[2017-04-23 10:34] LABS: INR 1.2 (0.87-1.13)
--- NOTE | 2017-04-23 10:59 | Gastroenterology Consultation ---
History of Present Illness - Reason for Consult Consult date: 04/22/17 Past History Past Medical History: No medical history Past Surgical History: No surgical history Social history: no significant social history Family history: hypertension Medications and Allergies Allergies Allergy/AdvReac Type Severity Reaction Status Date / Time morphine Allergy Hives Verified 06/11/14 12:41 Home Medications Medication Instructions Recorded Confirmed Last Taken Type Sennosides/Docusate [Senokot S] 2 tab PO QHS #60 tablet 04/23/17 Unknown Rx oxyCODONE [Roxicodone TAB] 10 mg PO Q4H PRN #30 tablet 04/23/17 Unknown Rx Active Meds: Active Medications Bisacodyl (Dulcolax) 10 mg ID QDAY PRN PRN Reason: Constipation unrelieved by MOM Diphenhydramine HCl (Benadryl) 25 mg IV Q6H PRN PRN Reason: Itching Last Admin: 04/23/17 06:43 Dose: 25 mg Enoxaparin Sodium (Lovenox) 40 mg SUB-Q QDAY@2200 [facility] Last Admin: 04/22/17 22:08 Dose: 40 mg Hydromorphone HCl (Dilaudid) 1 mg IV Q3H PRN PRN Reason: Pain , Severe (7-10) Last Admin: 04/23/17 08:09 Dose: 1 mg Sodium Chloride (Nacl 0.9% 1000 Ml) 1,000 mls @ 125 mls/hr IV DIRECT [facility] Last Admin: 04/23/17 01:53 Dose: 125 mls/hr Magnesium Hydroxide (Milk Of Magnesia) 30 ml PO Q4H PRN PRN Reason: Constipation Last Admin: 04/22/17 08:44 Dose: 30 ml Ondansetron HCl (Zofran) 4 mg IV Q8H PRN PRN Reason: N/V unrelieved by Reglan Oxycodone HCl (Roxicodone) 10 mg PO Q4H PRN PRN Reason: Pain, Moderate (4-6) Last Admin: 04/23/17 06:43 Dose: 10 mg Polyethylene Glycol (Miralax 3350) 17 gm PO QDAY [facility] Last Admin: 04/22/17 13:54 Dose: 17 gm Senna/Docusate Sodium (Senokot S) 2 tab PO QHS [facility] Last Admin: 04/22/17 22:08 Dose: 2 tab Zinc Acetate/Diphenhydramine (Banophen Anti-Itch) 1 applic TP Q6H PRN PRN Reason: Itching Exam - Constitutional Vital Signs: Temp Pulse Resp BP Pulse Ox 97.8 F 74 20 112/65 96 04/23/17 08:01 04/23/17 08:01 04/23/17 08:01 04/23/17 08:01 04/23/17 08:01 - Labs CBC & Chem 7: 04/22/17 05:57 04/22/17 05:57 Lab Results: Laboratory Results - last 24 hr 04/22/17 04/23/17 04/23/17 10:00 09:42 09:42 PT 15.8 H INR 1.20 H Total Bilirubin 10.50 H Direct Bilirubin 7.6 H Indirect Bilirubin 2.9 AST 1556 H ALT 2900 H Alkaline Phosphatase 194 H Total Protein 6.6 Albumin 4.0 Albumin/Globulin Ratio 1.5 HIV 1&2 Antibody Rapid Non react HIV P24 Antigen Non react
--- NOTE | 2017-04-23 11:46 | Progress Note ---
Assessment and Plan Assessment: 1) Acute Hepatitis B virus -Plat 205. -AST 2107-->1556. ALT 3553-->2900. Alk phos 220-->194. Total bili 8.7-->10. -HBV core IgM positive, HBV s Ag positive. -HCV ab neg. -No coagulopathy -HIV neg Plan: -all LFTs are better except bili which is up - monitor bili and INR -treat symptomatically -follow-up HBV DNA and HBV e Ag -monitor HBV e Ag conversion to negative in 6 months -follow-up RPR -needs GI med f/u with labs weekly upon discharge and in 6 months to determine clearance of the virus I will be off from April 02 until April 05, I will be back on April 06. I will be available over the phone. Thank you Dr Saleem for your consultation, will follow up with you. Jessica Nix MD Infectious Diseases Specialist [facility] ([facility]) M [phone] O [phone] Subjective Date of service: 04/23/17 Principal diagnosis: HBV Interval history: Feels not better, c/o lower left back pain and dysuria. No fever. Still itching Microbiology: none Current Antimicrobials: none Previous Antimicrobials: Objective - Exam Narrative Exam: General appearance: Alert in NAD, conversant Eyes: +icteric sclerae, moist conjunctivae; no lid-lag; PERRLA HENT: Atraumatic; oropharynx clear Neck: Trachea midline; supple, no thyromegaly or lymphadenopathy Lungs: CTA CV: RRR,murmurs Abdomen: Soft, +RUQ tenderness Extremities: No peripheral edema or extremity lymphadenopathy Skin: Normal temperature, turgor and texture; no rash, ulcers or subcutaneous nodules Psych: Appropriate affect, alert and oriented to person, place and time. Neuro: alert and oriented x 3. Moving all extermities Lines: No CVL / PICC - Constitutional Vitals: Vital Signs Temp Pulse Resp BP Pulse Ox 97.8 F 74 20 112/65 96 04/23/17 08:01 04/23/17 08:01 04/23/17 08:01 04/23/17 08:01 04/23/17 08:01 Temperature -Last 24 Hours Temperature 97.8 F Temperature 98.4 F Temperature 98.4 F - Labs CBC & Chem 7: 04/22/17 05:57 04/22/17 05:57 Labs: Abnormal lab results 04/23/17 04/23/17 Range/Units 09:42 09:42 PT 15.8 H (12.2-14.9) Sec. INR 1.20 H (0.87-1.13) Total Bilirubin 10.50 H (0.1-1.2) mg/dL Direct Bilirubin 7.6 H (0-0.2) mg/dL AST 1556 H (5-40) units/L ALT 2900 H (7-56) units/L Alkaline Phosphatase 194 H (35-129) units/L
[2017-04-23] MEDS: LOVENOX SUB-Q SCH (22:53)
[2017-04-23] MEDS: SENOKOT S PO SCH (22:53)
[2017-04-24] MEDS: ROXICODONE PO PRN ×3 (01:18→12:06)
[2017-04-24] MEDS: BENADRYL IV PRN ×2 (03:19→09:24)
[2017-04-24 08:49] VITALS: BP 110/65
[2017-04-24] MEDS: MIRALAX 3350 PO SCH (09:25)
--- NOTE | 2017-04-24 10:14 | Progress Note ---
Assessment and Plan Assessment and plan: This is a patient from the [facility] sent to hospital for abdominal pain and jaundice (1) Hepatitis, acute type B ID input appreciated "-no indication for antiretroviral treatment for acute infection in view of bili <10 and INR <1.5 -check HBV DNA and HBV e Ag -monitor HBV e Ag conversion to negative in 6 months -check HIV, RPR" -continue IVF and pain meds (2) Abdominal pain Current Visit: Yes Status: Acute Qualifiers: Abdominal location: right upper quadrant Qualified Code(s): R10.11 - Right upper quadrant pain 3. constipation add stool softeners (4) DVT prophylaxis Current Visit: Yes Status: Acute Plan to address problem: on lovenox and History Interval history: He is complaining of right upper quadrant pain. It is 8 out of 10. Denies nausea denies vomiting. He has no exacerbating or relieving factors. Hospitalist Physical - Constitutional Vitals: Temp Pulse Resp BP Pulse Ox 99.1 F 83 18 110/65 84 04/24/17 07:36 04/24/17 07:36 04/24/17 07:36 04/24/17 07:36 04/24/17 07:36 General appearance: Present: no acute distress, well-nourished - EENT Eyes: Present: PERRL, EOM intact, scleral icterus ENT: hearing intact, clear oral mucosa - Neck Neck: Present: supple, normal ROM - Respiratory Respiratory effort: normal Respiratory: bilateral: CTA - Cardiovascular Rhythm: regular Heart Sounds: Present: S1 & S2 - Extremities Extremities: no ischemia Peripheral Pulses: within normal limits - Abdominal General gastrointestinal: soft Localized gastrointestinal: tender: RUQ - Integumentary Integumentary: Present: clear, warm, dry - Psychiatric Psychiatric: appropriate mood/affect, intact judgment & insight, memory intact, cooperative - Neurologic Neurologic: CNII-XII intact, no focal deficits, moves all extremities Results - Labs CBC & Chem 7: 04/22/17 05:57 04/22/17 05:57 Labs: Laboratory Last Values WBC 3.8 K/mm3 (4.5-11.0) L 04/22/17 05:57 RBC 3.96 M/mm3 (3.65-5.03) 04/22/17 05:57 Hgb 11.8 gm/dl (11.8-15.2) 04/22/17 05:57 Hct 35.7 % (35.5-45.6) 04/22/17 05:57 MCV 90 fl (84-94) 04/22/17 05:57 MCH 30 pg (28-32) 04/22/17 05:57 MCHC 33 % (32-34) 04/22/17 05:57 RDW 15.5 % (13.2-15.2) H 04/22/17 05:57 Plt Count 201 K/mm3 (140-440) 04/22/17 05:57 [place] % (Auto) Dry Drug Worker 04/22/17 05:57 Add Manual Diff Complete 04/22/17 05:57 Total Counted 100 04/22/17 05:57 Seg Neutrophils % Dry Drug Worker 04/22/17 05:57 Seg Neuts % (Manual) 43.0 % (40.0-70.0) 04/22/17 05:57 Band Neutrophils % 0 % 04/22/17 05:57 Lymphocytes % (Manual) 37.0 % (13.4-35.0) H 04/22/17 05:57 Reactive Lymphs % (Man) 0 % 04/22/17 05:57 Monocytes % (Manual) 8.0 % (0.0-7.3) H 04/22/17 05:57 Eosinophils % (Manual) 12.0 % (0.0-4.3) H 04/22/17 05:57 Basophils % (Manual) 0 % (0.0-1.8) 04/22/17 05:57 Metamyelocytes % 0 % 04/22/17 05:57 Myelocytes % 0 % 04/22/17 05:57 Promyelocytes % 0 % 04/22/17 05:57 Blast Cells % 0 % 04/22/17 05:57 Nucleated RBC % Not Reportable 04/22/17 05:57 Seg Neutrophils # Man 1.6 K/mm3 (1.8-7.7) L 04/22/17 05:57 Band Neutrophils # 0.0 K/mm3 04/22/17 05:57 Lymphocytes # (Manual) 1.4 K/mm3 (1.2-5.4) 04/22/17 05:57 Abs React Lymphs (Man) 0.0 K/mm3 04/22/17 05:57 Monocytes # (Manual) 0.3 K/mm3 (0.0-0.8) 04/22/17 05:57 Eosinophils # (Manual) 0.5 K/mm3 (0.0-0.4) H 04/22/17 05:57 Basophils # (Manual) 0.0 K/mm3 (0.0-0.1) 04/22/17 05:57 Metamyelocytes # 0.0 K/mm3 04/22/17 05:57 Myelocytes # 0.0 K/mm3 04/22/17 05:57 Promyelocytes # 0.0 K/mm3 04/22/17 05:57 Blast Cells # 0.0 K/mm3 04/22/17 05:57 WBC Morphology Not Reportable 04/22/17 05:57 Hypersegmented Neuts Not Reportable 04/22/17 05:57 Hyposegmented Neuts Not Reportable 04/22/17 05:57 Hypogranular Neuts Not Reportable 04/22/17 05:57 Smudge Cells Not Reportable 04/22/17 05:57 Toxic Granulation Not Reportable 04/22/17 05:57 Toxic Vacuolation Not Reportable 04/22/17 05:57 Dohle Bodies Not Reportable 04/22/17 05:57 Pelger-Huet Anomaly Not Reportable 04/22/17 05:57 Satya Rods Not Reportable 04/22/17 05:57 Platelet Estimate Appears normal 04/22/17 05:57 Clumped Platelets Not Reportable 04/22/17 05:57 Plt Clumps, EDTA Not Reportable 04/22/17 05:57 Large Platelets Not Reportable 04/22/17 05:57 Giant Platelets Not Reportable 04/22/17 05:57 Platelet Satelliting Not Reportable 04/22/17 05:57 Plt Morphology Comment Not Reportable 04/22/17 05:57 RBC Morphology Not Reportable 04/22/17 05:57 Dimorphic RBCs Not Reportable 04/22/17 05:57 Polychromasia Not Reportable 04/22/17 05:57 Hypochromasia Few 04/22/17 05:57 Poikilocytosis Not Reportable 04/22/17 05:57 Anisocytosis Not Reportable 04/22/17 05:57 Microcytosis Not Reportable 04/22/17 05:57 Macrocytosis Not Reportable 04/22/17 05:57 Spherocytes Not Reportable 04/22/17 05:57 Pappenheimer Bodies Not Reportable 04/22/17 05:57 Sickle Cells Not Reportable 04/22/17 05:57 Target Cells Rare 04/22/17 05:57 Tear Drop Cells Not Reportable 04/22/17 05:57 Ovalocytes Few 04/22/17 05:57 Helmet Cells Not Reportable 04/22/17 05:57 [place] Bodies Not Reportable 04/22/17 05:57 [place] Rings Not Reportable 04/22/17 05:57 [place] Cells Not Reportable 04/22/17 05:57 Bite Cells Not Reportable 04/22/17 05:57 Crenated Cell Not Reportable 04/22/17 05:57 Elliptocytes Not Reportable 04/22/17 05:57 Acanthocytes (Spur) Not Reportable 04/22/17 05:57 Rouleaux Not Reportable 04/22/17 05:57 Hemoglobin C Crystals Not Reportable 04/22/17 05:57 Schistocytes Not Reportable 04/22/17 05:57 Malaria parasites Not Reportable 04/22/17 05:57 Adebayo Bodies Not Reportable 04/22/17 05:57 Hem Pathologist Commnt No 04/22/17 05:57 PT 15.8 Sec. (12.2-14.9) H 04/23/17 09:42 INR 1.20 (0.87-1.13) H 04/23/17 09:42 APTT 36.2 Sec. (24.2-36.6) 04/21/17 12:58 Sodium 136 mmol/L (137-145) L 04/22/17 05:57 Potassium 4.1 mmol/L (3.6-5.0) 04/22/17 05:57 Chloride 98.1 mmol/L (98-107) 04/22/17 05:57 Carbon Dioxide 25 mmol/L (22-30) 04/22/17 05:57 Anion Gap 17 mmol/L 04/22/17 05:57 BUN 7 mg/dL (9-20) L 04/22/17 05:57 Creatinine 0.5 mg/dL (0.8-1.5) L 04/22/17 05:57 Estimated GFR > 60 ml/min 04/22/17 05:57 BUN/Creatinine Ratio 14 % 04/22/17 05:57 Glucose 98 mg/dL (75-100) 04/22/17 05:57 Calcium 8.4 mg/dL (8.4-10.2) 04/22/17 05:57 Magnesium 1.90 mg/dL (1.7-2.3) 04/21/17 12:58 Total Bilirubin 10.50 mg/dL (0.1-1.2) H 04/23/17 09:42 Direct Bilirubin 7.6 mg/dL (0-0.2) H 04/23/17 09:42 Indirect Bilirubin 2.9 mg/dL 04/23/17 09:42 AST 1556 units/L (5-40) H 04/23/17 09:42 ALT 2900 units/L (7-56) H 04/23/17 09:42 Alkaline Phosphatase 194 units/L (35-129) H 04/23/17 09:42 Ammonia 76.0 umol/L (25-60) H 04/21/17 12:58 Total Creatine Kinase 342 units/L (55-170) H 04/21/17 12:58 CK-MB (CK-2) 3.6 ng/mL (0.0-4.0) 04/21/17 12:58 CK-MB (CK-2) Rel Index 1.0 (0-4) 04/21/17 12:58 Total Protein 6.6 g/dL (6.3-8.2) 04/23/17 09:42 Albumin 4.0 g/dL (3.9-5) 04/23/17 09:42 Albumin/Globulin Ratio 1.5 % 04/23/17 09:42 Lipase 53 units/L (13-60) 04/21/17 12:05 Urine Color Li (Yellow) 04/21/17 13:19 Urine Turbidity Clear (Clear) 04/21/17 13:19 Urine pH 6.0 (5.0-7.0) 04/21/17 13:19 Ur Specific [place] 1.016 (1.003-1.030) 04/21/17 13:19 Urine Protein <15 mg/dl mg/dL (Negative) 04/21/17 13:19 Urine Glucose (UA) Neg mg/dL (Negative) 04/21/17 13:19 Urine Ketones Neg mg/dL (Negative) 04/21/17 13:19 Urine Blood Neg (Negative) 04/21/17 13:19 Urine Nitrite Neg (Negative) 04/21/17 13:19 Urine Bilirubin Mod (Negative) 04/21/17 13:19 Urine Ictotest Positive (Negative) 04/21/17 13:19 Urine Urobilinogen 4.0 mg/dL (<2.0) 04/21/17 13:19 Ur Leukocyte Esterase Neg (Negative) 04/21/17 13:19 Urine WBC (Auto) 2.0 /HPF (0.0-6.0) 04/21/17 13:19 Urine RBC (Auto) 2.0 /HPF (0.0-6.0) 04/21/17 13:19 U Epithel Cells (Auto) < 1.0 /HPF (0-13.0) 04/21/17 13:19 Urine Mucus Few /HPF 04/21/17 13:19 Urine Opiates Screen Presumptive negative 04/21/17 13:19 Urine Methadone Screen Presumptive negative 04/21/17 13:19 Ur Barbiturates Screen Presumptive negative 04/21/17 13:19 Ur Phencyclidine Scrn Presumptive negative 04/21/17 13:19 Ur Amphetamines Screen Presumptive negative 04/21/17 13:19 U Benzodiazepines Scrn Presumptive negative 04/21/17 13:19 Urine Cocaine Screen Presumptive negative 04/21/17 13:19 U Marijuana (THC) Screen Presumptive negative 04/21/17 13:19 Drugs of Abuse Note Disclamer 04/21/17 13:19 Hepatitis A IgM Ab Non-reactive (NonReactive) 04/21/17 23:23 Hep Bs Antigen Reactive (Negative) 04/21/17 23:23 Hep B Core IgM Ab Reactive (NonReactive) A 04/21/17 23:23 Hepatitis C Antibody Non-reactive (NonReactive) 04/21/17 23:23 HIV 1&2 Antibody Rapid Non react (Non React) 04/22/17 10:00 HIV P24 Antigen Non react (Non React) 04/22/17 10:00
== END 2017-04-24 13:00 | disposition home or self-care (01) | DRG 443 ==
LOC: ED 11:32 → EEVIPCON 13:09 → 3A 13:09
PROVIDERS: ADMIT Internal Medicine; ATTEND Internal Medicine
PROC: 3E0234Z Introduction of Serum, Toxoid and Vaccine into Muscle, Percutaneous Approach (ICD-10-PCS; principal; 2017-04-22)
DX: B16.9 Acute hepatitis B without delta-agent and without hepatic coma (principal); R74.0 Nonspecific elevation of levels of transaminase and lactic acid dehydrogenase [LDH]; E80.6 Other disorders of bilirubin metabolism; Z23 Encounter for immunization; J45.909 Unspecified asthma, uncomplicated; F17.210 Nicotine dependence, cigarettes, uncomplicated; K59.00 Constipation, unspecified; Z88.5 Allergy status to narcotic agent
CPT/HCPCS: 36415; 74177; 80053; 80074; 80307; 81001; 82140; 82550; 82553; 83690; 83735; 85007; 85025; 85610; 85730; 87350; 87517; 87806; 90686; 90732; 99285; J1170; J1200; J1650; J2405; J7030; Q9967